=== PATIENT | female | born 1925 | race Caucasian/White ===

== ENCOUNTER 2017-03-11 13:51 | Emergency (ER) | payer OTHER ==
[2017-03-11 14:47] LABS: ADD MAN DIFF? NO
[2017-03-11 15:10] LABS: INR 2.57; PROTIME 28.3 Sec (11.9-14.9); PT RATIO 2.2
[2017-03-11 15:11] LABS: PARTIAL THROMBOPLASTIN TIME 64.9 Sec (25.0-35.0)
[2017-03-11 15:17] LABS: ANION GAP 19 (8-16); BLOOD UREA NITROGEN 51 mg/dl (7-20); CALCIUM 7.8 mg/dl (8.4-10.2); CARBON DIOXIDE 27 mmol/L (21-31); CHLORIDE 94 mmol/L (97-110); CREATININE 4.39 mg/dl (0.44-1.00); GLUCOSE 131 mg/dl (70-220); POTASSIUM 4.1 mmol/L (3.5-5.1); SODIUM 136 mmol/L (135-144)
[2017-03-11 17:03] LABS: ANISOCYTOSIS 2+ (0-0); BAND NEUTROPHILS % (M) 23 % (0-4); EOSINOPHILS % (M) 1 % (0-7); ERYTHROBLAST% (NRBC) (M) 2 % (0-0); GIANT THROMBO% (M) 1 % (0-0); LYMPHOCYTES % (M) 16 % (15-51); METAMYELOCYTES %M 1 % (0-0); MICROCYTOSIS 2+ (0-0); MONOCYTES % (M) 15 % (0-11); PLATELET ESTIMATE NORMAL; POIKILOCYTOSIS 2+ (0-0); POLYCHROMASIA 2+ (0-0); SEGMENTED NEUTROPHILS (M) % 44 % (39-77); SMUDGE%M 6 % (0-0)
[2017-03-11 17:30] LABS: BAND NEUTROPHILS #M 3.4 10^3/ul (0.0-0.6); HEMATOCRIT 22.4 % (37.0-47.0); HEMOGLOBIN 8.3 g/dl (12.0-16.0); LYMPHOCYTES #M 2.3 10^3/ul (0.8-2.9); MEAN CORPUSCULAR HEMOGLOBIN 38.6 pg (29.0-33.0); MEAN CORPUSCULAR VOLUME 104.2 fl (82.0-101.0); METAMYELOCYTES #M 0.1 10^3/ul (0.0-0.0); MONOCYTE #M 2.2 10^3/ul (0.3-0.9); RED BLOOD COUNT 2.15 10^6/ul (4.20-5.40); SEG NEUT #M 7.1 10^3/ul (1.7-7.5)
[2017-03-11 17:30] LABS: WHITE BLOOD COUNT 14.9 10^3/ul (4.8-10.8)
[2017-03-11 17:31] LABS: MEAN CORPUSCULAR HGB CONC 37.1 g/dl (32.0-37.0); MEAN PLATELET VOLUME 11.7 fl (7.4-10.4); PLATELET COUNT 188 10^3/UL (140-440); RED CELL DISTRIBUTION WIDTH 25.7 % (11.5-14.5)
[2017-03-11] MEDS ORDERED: ONDANSETRON 4 MG INJ IV (19:00)
[2017-03-11] MEDS ORDERED: ACETAMINOPHEN 325 MG TAB PO (19:00)
== END 2017-03-11 23:55 | disposition home or self-care (01) ==
LOC: E/R 13:51
DX: I12.0 Hypertensive chronic kidney disease with stage 5 chronic kidney disease or end stage renal disease (principal); N18.6 End stage renal disease; R91.8 Other nonspecific abnormal finding of lung field; D72.829 Elevated white blood cell count, unspecified; I50.9 Heart failure, unspecified; Z99.2 Dependence on renal dialysis
CPT/HCPCS: 36415; 71010; 80048; 85025; 85610; 85730; 86850; 86870; 86880; 86900; 86901; 93005; 99285-25